=== PATIENT | female | born 1960 | race Two or more races ===

== ENCOUNTER 2017-01-21 22:23 | Emergency (ER) | payer OTHER ==
[~2017-01-21 22:23] MED LIST: ACET325 PO; ALLERGY SHOTS; LORA10TA7 PO
[2017-01-21 22:28] VITALS: BP 162/86; PULSE 91; RESP 16; TEMP 98.1; O2SAT 97
[2017-01-29] MEDS ORDERED: PERC5TAB12 PO (09:05)
[2017-01-29] MEDS ORDERED: OMEP20TA PO (09:05)
[2017-01-29] MEDS ORDERED: CEPH500T PO (09:05)
[2017-01-30] MEDS ORDERED: CEPH-460 PO (10:58)
[2017-01-30] MEDS ORDERED: HYDR-3288 PO (10:58)
== END 2017-01-21 22:43 | disposition left against medical advice (07) ==
LOC: NED 22:23
DX: Z53.29 Procedure and treatment not carried out because of patient's decision for other reasons (principal)
CPT/HCPCS: 99281

== ENCOUNTER → 2017-01-30 | Day surgery (SDC) | payer OTHER ==
[~2017-01-30] VITALS: Ht 149.9 cm; Wt 57.0 kg
[~2017-01-30] MED LIST changes: -ACET325 PO; +ACETAMINOPHEN 1000 MG/100 ML VIAL IV ONE; -ALLERGY SHOTS; +BUPIVACAINE HCL PF 0.5% 30 ML VIAL INFIL ONE; +CEPH-460 PO; +CEPH500T PO; +DEXAMETHASONE SOD PHOS 4 MG/ML VIAL ONE; +FAMOTIDINE 20 MG/2 ML VIAL ONE; +HYDR-3288 PO; +LACTATED RINGER'S 1000 ML INJ 1,000 ML ONE; +LIDOCAINE HCL 2% 50 ML VIAL ONE; -LORA10TA7 PO; +MIDAZOLAM HCL 2 MG/2 ML VIAL ONE; +NEOMYCIN/POLYMYXIN 1 ML G.U. IRRIGANT IR ONE; +OMEP20TA PO; +PERC5TAB12 PO; +PROPOFOL 200 MG/20 ML AMP IV ONE; +SODIUM CHLOR 0.9% 1000 ML INJ 1,000 ML IV ONE; +ceFAZolin INJ 1,000 MG VIAL ONE
[2017-01-30 07:19] VITALS: BP 106/69; PULSE 55; RESP 14; TEMP 97.6; O2SAT 95
[2017-01-30 07:43] LABS: HEMATOCRIT 35.3 % (35.0-46.0); MEAN CELL VOLUME 86.9 FL (80.0-100.0); MEAN CORPUSCULAR HEMOGLOBIN 30.4 PG (27.0-34.0); PLATELET COUNT 389 TH/MM3 (150-450); RED BLOOD COUNT 4.06 MIL/MM3 (4.00-5.30); RED CELL DISTRIBUTION WIDTH 11.8 % (11.6-17.2); REVIEW FLAG FINAL; WHITE BLOOD COUNT 6.7 TH/MM3 (4.0-11.0)
[2017-01-30 08:22] VITALS: BP 106/69; PULSE 55; RESP 14; TEMP 97.6; O2SAT 95
[2017-01-30 11:01] VITALS: PULSE 81
[2017-01-30 11:56] VITALS: BP 106/66; PULSE 82; RESP 16; TEMP 97.7; O2SAT 98
--- NOTE | 2017-01-30 11:56 | MP ---
cc: BRAD HOPKINS III, M.D. DATE OF OPERATION 01/30/2017 PREOPERATIVE DIAGNOSIS Left index finger lacerations and flexor tendon injury. POSTOPERATIVE DIAGNOSES Left index finger lacerations and flexor tendon injury. Left index finger digital nerve injury. PROCEDURE 1. Left index finger exploration with flexor digitorum profundus tendon repair over a button. 2. Left index finger ulnar digital nerve repair. 3. Complex wound closure left index finger. 4. Use of image intensifier. SURGEON Brad Hopkins III, MD PROCEDURE The patient was brought to the operating room, placed supine on the operating table. After the correct site and side of surgery were verified by members of each team in the room multiple times including the patient and myself and after adequate preoperative markings and preoperative written consent were verified by everyone, and after adequate preoperative time-out was performed to everyone's satisfaction, after adequate general anesthesia was achieved, the left upper extremity was prepped and draped in traditional sterile surgical fashion. A 50/50 mixture of 2% plain lidocaine and 0.5% plain Marcaine was infiltrated into the skin and subcutaneous tissue in the palm. The limb was elevated pressure held on the brachial artery for 1 minute and a highly placed, well-padded axillary tourniquet was inflated to 200 mmHg for a total 62 minutes. The existing sutures were removed. As verified, the flexor digitorum profundus was found to be transected at its insertion from the distal phalanx and it was easily retracted back into the wound and then the ulnar digital nerve was found transected at the level of the DIP joint also. Cultures were obtained and passed off the field as specimen. Thorough irrigation with saline was performed. Examination revealed the nail bed, fingernail plate and the tip were almost not exactly free-floating but there were significant lacerations surrounding it, though it was viable and a few interrupted 4-0 chromics and 4-0 nylon sutures were used to secure the tip of the finger and the nail bed and hopefully the nail matrix. Irrigation was performed again. The flexor digitorum profundus tendon was then released, repaired/reinserted to the distal phalanx by drilling two holes in the distal phalanx, coming out proximal to the nail bed using straight Crow needles. 30-gauge wire was then used and sewn into the tendon to the middle phalanx in a non-locking Cook fashion. The 4-0 Prolene on a tapered needle was then sewn in a locking, modified locking and nonlocking Cook fashion. Both ends of the Prolene and the surgical steel were inserted into one of the two Crow needles and then these were pulled through the distal phalanx and brought out the dorsum of the finger. Thorough irrigation was performed again. Two small Arthrex buttons were used as they were thin, were used in the usual fashion with a roll of Xeroform between the sutures and underneath the button, between the button and the skin. The finger was flexed. The end of the tendon was approximated to its insertion and the suture and then the wire tied and secured. Full passive range of motion was possible. Mini C-arm was used to guide the placement of the needles in the holes in the distal phalanx. The two ends of the ulnar digital nerve were then reapproximated using interrupted 8-0 nylon sutures. Thorough irrigation was used to thoroughly flush the wound out again. All devitalized skin was excised sharply. The skin edges were all then reapproximated using interrupted 4-0 chromic sutures. One small dog ear distally was repaired. The axillary tourniquet was released. The hand and all fingers on the left including the index finger became immediately soft, pink and warm and had brisk capillary refill of less than 2 seconds. The tip of the index finger did become pink as well. The hand and arm were thoroughly cleansed and dried. Betadine and Adaptic dressings was applied on top of the wound. A bulky soft dressing was applied. The hand and all fingers were placed in an ice cream scoop fashion leaving only the thumb free and a well-padded, well molded dorsal blocking splint was made in the usual fashion. The patient was awakened from anesthesia and transported to the Post-Anesthesia Care Unit awake and in stable condition at the end of the case. The sponge, needle and instrument counts were correct at the end of the end of the case as reported by the nurses in the room. MD ALEXANDER Ford III/CATE /11:11 AM /11:26 AM
--- NOTE | 2017-01-31 13:49 | EKG ---
Date Performed: 01/30/2017 Time Performed: 08:13:10 PTAGE: 56 years EKG: Sinus bradycardia. Normal ECG except for rate NO PREVIOUS TRACING DOCTOR: Reymundo Greer Interpretating Date/Time 01/31/2017 13:43:55
== END | disposition home or self-care (01) ==
LOC: PHSDC 06:57
PROVIDERS: ATTEND Orthopaedic Surgery Hand Surgery
DX: S66.121A Laceration of flexor muscle, fascia and tendon of left index finger at wrist and hand level, initial encounter (principal); S64.02XA Injury of ulnar nerve at wrist and hand level of left arm, initial encounter; Z88.6 Allergy status to analgesic agent; Z88.1 Allergy status to other antibiotic agents; Z88.2 Allergy status to sulfonamides; W45.8XXA Other foreign body or object entering through skin, initial encounter
CPT/HCPCS: 26370; 36415; 64836; 76000; 85027; 87015; 87070; 87102; 87116; 87205; 87206; 93005; C1713; J0131; J0690; J1100; J2250; J3010; J7030; J7120